=== PATIENT | female | born 1960 | race Caucasian/White ===

== ENCOUNTER → 2020-02-11 | Outpatient (CLI) | payer MEDICARE ==
[~2020-02-11] VITALS: Ht 169 cm; Wt 59.0 kg
[~2020-02-11] MED LIST: REGADENOSON 0.4 MG/5 ML SYR (LEXISCAN) IV ONE
[2020-02-11] MEDS: CATHETER FLUSH 10 ML SYR IV PRN ×2 (08:39→09:36)
[2020-02-11 09:35] VITALS: BP 112/74
--- NOTE | 2020-02-11 13:13 | STRESS TEST ---
DATE OF SERVICE: 02/11/2020 RESTING AND POST REGADENOSON TECHNETIUM-99M TETROFOSMIN SPECT CT IMAGING CLINICAL DIAGNOSES: Chest discomfort, shortness of breath. ORDERING PHYSICIAN: Dr. Mobley. OTHER PHYSICIAN: Dr. Delicia Odraz. CLINICAL DIAGNOSIS: Baseline images were carried out after injection of 10.31 mCi of technetium-99m Tetrofosmin. This was followed by 0.4 mg of regadenoson and 31.9 mCi of technetium-99m Tetrofosmin for stress imaging. The electrocardiogram showed sinus rhythm at baseline. It did not change significantly with the regadenoson infusion. Review of images at rest and following stress does not indicate any significant perfusion defects consistent with significant myocardial ischemia or infarction. Gated images show normal global left ventricular systolic function with normal regional wall motion. Left ventricular ejection fraction is calculated to be 73%. Left ventricular end diastolic volume is 46 mL. TID is absent (0.99). CONCLUSIONS: 1. No evidence of any significant myocardial ischemia or infarction on this study. 2. Normal regional wall motion. 3. Normal global left ventricular systolic function with a calculated ejection fraction of 73%. Job ID: [id number] DocumentID: [id number] Dictated Date: 02/11/2020 11:45:09 Managing Cognitive Engineer Date: 02/11/2020 13:12:53 Dictated By: NATALIE MOBLEY MD, MA, FACP, FACC,
== END ==
LOC: CARD 08:30
PROVIDERS: ATTEND Internal Medicine Cardiovascular Disease
DX: R07.89 Other chest pain (principal); R06.02 Shortness of breath
CPT/HCPCS: 78452; 82962; 93017; A9502